=== PATIENT | female | born 1955 | race American Indian/Alaskan Native ===

== ENCOUNTER 2020-10-22 09:03 | Day surgery (SDC) | payer BC ==
[~2020-10-22 09:03] MED LIST: SODIUM CHLORIDE 0.9% 1000 ML 1,000 ML IV SCH
--- NOTE | 2020-10-22 10:07 | Anesthesia Day of Surgery ---
Anesthesia Day of Surgery - Day of Surgery Patient Examined: Yes Patient H&P Reviewed: Yes Patient is NPO: Yes
--- NOTE | 2020-10-22 10:07 | Anesthesia Consultation ---
Anesthesia Consult and Med Hx Date of service: 10/22/20 - Airway Anesthetic Teeth Evaluation: Poor, Partials ROM Head & Neck: Adequate Mental/Hyoid Distance: Adequate Mallampati Class: Class I Intubation Access Assessment: Probably Good - Pre-Operative Health Status ASA Pre-Surgery Classification: ASA4 Proposed Anesthetic Plan: MAC - Pulmonary Hx Smoking: Yes SOB: Yes (chornic, unchanged) COPD: Yes (used inhalers this morning) Home Oxygen Therapy: Yes (2L NC) - Cardiovascular System Hx Hypertension: Yes Hx Heart Attack/AMI: No Hx Percutaneous Transluminal Coronary Angioplasty (PTCA): No Hx Cardia Arrhythmia: No - Central Nervous System CVA: No - Gastrointestinal Hx Gastroesophageal Reflux Disease: Yes - Endocrine Hx Renal Disease: No Hx Liver Disease: No Hx Insulin Dependent Diabetes: Yes Hx Thyroid Disease: No - Other Systems Hx Obesity: Yes (BMI 47) - Additional Comments Anesthesia Medical History Comments: No hx anesthetic complications. Arrived to pre-procedure area w/ SpO2 mid-80s. Did not bring home O2 tank. SpO2 improved to >95% on 2L NC. Patient instructed to call her family and ask them to bring her home O2 tank with them for use on the way home from the procedure.
[2020-10-22] MEDS ORDERED: propofoL 200 MG/20 ML VIAL IV ONE (11:43)
--- NOTE | 2020-10-22 12:21 | Procedure Note ---
Date of procedure: 10/22/20 Pre-op diagnosis: Abdominal and Epigastric Pain Post-op diagnosis: other (No Peptic Ulcer Disease noted/ Mild to Moderate Erosive Esophagitis/Gastritis/ R/O Celiac disease/ R/o Eosinophilic Esophagitis) Procedure: EGD with Biopsy Anesthesia: MAC Surgeon: JAJA LAZCANO Estimated blood loss: minimal Pathology: list Specimen disposition: to lab Condition: stable Disposition: same day (Treat with PPI and prn Bentyl. Avoid aspirin and NSAID, otherwise resume home medication and follow up in 1 to 2 weeks ([phone]).)
--- NOTE | 2020-10-22 12:30 | Post Anesthesia Evaluation ---
- Post Anesthesia Evaluation Patient Participated: Yes Airway Patent: Yes Stable Respiratory Function: Yes Nausea/Vomiting: No Temp > 96.8F: Yes Pain Manageable: Yes Adequeate Hydration: Yes Anesthesia Complications: No
--- NOTE | 2020-10-22 13:41 | Operative Report ---
PROCEDURE: Esophagogastroduodenoscopy with biopsy. INDICATIONS: This is a 64-year-old -Citizen Of [place] female who has been having abdominal pain as well as epigastric pain. EGD was done to assess for possible associated peptic ulcer disease. DESCRIPTION OF PROCEDURE: The procedure was done after getting informed consent with MAC anesthesia. Instrument was passed through the hypopharynx into the esophagus, which showed some mild distal esophagitis and a Schatzki ring without any esophageal narrowing. Photodocumentation was obtained from the distal esophagus. Biopsy was done from the distal esophagus to assess for the severity of the erosive esophagitis as well as from the mid esophagus to assess for eosinophilic esophagitis. Stomach showed gastritis. No ulcers were noted in the straight or the retroverted view. The pylorus was patent. The duodenum in the first and second portion appeared normal. Biopsy was done from the second part to rule out for possible celiac disease. Additional biopsy was done from the gastric antrum, gastric body and angular incisura to rule out for H. pylori and atrophic gastritis. There was minimal bleeding associated with the procedure and no complications associated with the procedure. ASSESSMENT: Abdominal and epigastric pain, no peptic ulcer disease noted. [id number] erosive esophagitis, gastritis, rule out celiac disease, rule out eosinophilic esophagitis. PLAN: To treat the patient with PPI and p.r.n. dose of Bentyl. I have encouraged the patient to take probiotics, have the patient avoid aspirin and aspirin-related products for the next few days and follow up in the office in 1-2 weeks' time. The patient may otherwise resume home medication besides aspirin and aspirin-related products. The procedure was done in the GI lab with assistance of the GI lab team, which included RN, Ira Garcia; Jason robertson and with assistance of Anesthesia. JOB# [id number] NBA/SALOME
[2020-10-22 14:47] VITALS: BP 151/70
== END 2020-10-22 14:48 | disposition home or self-care (01) ==
LOC: GIO 09:03
DX: R10.13 Epigastric pain (principal); R10.9 Unspecified abdominal pain; K21.00 Gastro-esophageal reflux disease with esophagitis, without bleeding; K31.89 Other diseases of stomach and duodenum; K29.50 Unspecified chronic gastritis without bleeding; B96.81 Helicobacter pylori [H. pylori] as the cause of diseases classified elsewhere; I10 Essential (primary) hypertension; J44.9 Chronic obstructive pulmonary disease, unspecified; E11.9 Type 2 diabetes mellitus without complications; E66.9 Obesity, unspecified; Z87.891 Personal history of nicotine dependence; Z79.899 Other long term (current) drug therapy; Z68.42 Body mass index [BMI] 45.0-49.9, adult
CPT/HCPCS: 43239; 82962; 88305; 88342; J2704; J7030

== ENCOUNTER 2021-01-24 07:14 | Outpatient (CLI) | payer OTHER ==
[2021-01-24] MEDS ORDERED: ALBUTEROL 2.5 MG/3 ML NEBU IH SCH (08:30)
== END 2021-01-24 07:15 | disposition home or self-care (01) ==
LOC: PF 07:14
PROVIDERS: ATTEND Internal Medicine
DX: J45.909 Unspecified asthma, uncomplicated (principal); M19.90 Unspecified osteoarthritis, unspecified site; J44.9 Chronic obstructive pulmonary disease, unspecified; I10 Essential (primary) hypertension; E11.9 Type 2 diabetes mellitus without complications; M65.4 Radial styloid tenosynovitis [de Quervain]
CPT/HCPCS: 94060; 94640; 94726; 94729